=== PATIENT | female | born 1985 | race Hispanic/Latino ===

== ENCOUNTER 2018-03-29 09:13 | Emergency (ER) | payer OTHER ==
[2018-03-29 09:19] VITALS: BMI 26.6
--- NOTE | 2018-03-29 09:39 | ED PDOC ---
Arrival/HPI - General Chief Complaint: Back Pain Time Seen by Provider: 03/29/18 09:38 Historian: Patient - History of Present Illness Narrative History of Present Illness (Text): 03/29/18 09:39 This 32 yo female who denies pmh, presents to this ED c/o left flank pain x 7 hours. Patient stated pain is intermittent, and she can not find a comfortable position. Patient believes she has kidney stones, since her friend had similar symptoms, and Dx. renal stones. Patient denies sob, cp, fever, urinary symptoms, hematuria, or abnormal gait. Time/Duration: Other (see hpi) Quality: Stabbing Context: Home Past Medical History - Provider Review Nursing Documentation Reviewed: Yes - Infectious Disease Hx of Infectious Diseases: None - Psychiatric Hx Substance Use: No Family/Social History - Physician Review Nursing Documentation Reviewed: Yes Family/Social History: Other (noncontributory) Smoking Status: Current Some Days Smoker Hx Alcohol Use: Yes Frequency of alcohol use: Socially Hx Substance Use: No Allergies/Home Meds Allergies/Adverse Reactions: Allergies No Known Allergies Allergy (Verified 03/29/18 09:39) Review of Systems - Review of Systems Constitutional: Normal. absent: Fatigue, Weight Change, Fevers Eyes: Normal ENT: Normal Respiratory: Normal. absent: SOB, Cough Cardiovascular: Normal. absent: Chest Pain, Palpitations Gastrointestinal: Other (left flank pain). absent: Nausea, Vomiting Genitourinary Female: Normal. absent: Dysuria, Frequency, Hematuria, Vaginal Bleeding, Vaginal Discharge Musculoskeletal: Normal Skin: Normal Neurological: Normal Endocrine: Normal Hemo/Lymphatic: Normal Psychiatric: Normal Physical Exam Vital Signs Temp Pulse Resp BP Pulse Ox 03/29/18 12:19 98 F 75 19 124/72 98 03/29/18 09:13 98.7 F 105 H 16 121/79 97 Temperature: Afebrile Blood Pressure: Normal Pulse: Regular Respiratory Rate: Normal Appearance: Positive for: Well-Appearing, Non-Toxic, Comfortable Pain Distress: None Mental Status: Positive for: Alert and Oriented X 3 - Systems Exam Head: Present: Atraumatic, Normocephalic Pupils: Present: PERRL Extroacular Muscles: Present: EOMI Conjunctiva: Present: Normal Mouth: Present: Moist Mucous Membranes Neck: Present: Normal Range of Motion Respiratory/Chest: Present: Clear to Auscultation, Good Air Exchange. No: Respiratory Distress, Accessory Muscle Use Cardiovascular: Present: Regular Rate and Rhythm, Normal S1, S2. No: Murmurs Abdomen: No: Tenderness, Distention, Peritoneal Signs, Rebound, Guarding Back: Present: Normal Inspection, CVA Tenderness ((+) mild left CVT). No: Midline Tenderness, Paraspinal Tenderness, Pain with Leg Raise Upper Extremity: Present: Normal Inspection, Normal ROM. No: Cyanosis, Edema Lower Extremity: Present: Normal Inspection, Normal ROM. No: Edema Neurological: Present: GCS=15, CN II-XII Intact, Speech Normal Skin: Present: Warm, Dry, Normal Color. No: Rashes Psychiatric: Present: Alert, Oriented x 3, Normal Insight, Normal Concentration Medical Decision Making ED Course and Treatment: 03/29/18 09:44 Left flank pain -labs -ct abdomen/pelvis w/o r/o stones -ua -preg.test -ivf, toradol 03/29/18 12:20 Re-evaluation. Patient feels better. Discussed results and plan with patient who expresses understanding. All questions answered and there is agreement with the plan to discharge home with instructions. Patient stable for discharge. Return if symptoms persist or worsen Patient was recommended to return to ED if pain worsen or persist. To take medication as instructed. Re-evaluation Time: 12:21 Reassessment Condition: Re-examined, Improved - Lab Interpretations Lab Results: 03/29/18 09:50 03/29/18 09:50 Lab Results 03/29/18 09:50: Sodium 144, Potassium 3.9, Chloride 105, Carbon Dioxide 26, Anion Gap 16, BUN 15, Creatinine 0.7, Est GFR ( Amer) > 60, Est GFR (Non- Af Amer) > 60, Random Glucose 103, Calcium 8.9, Total Bilirubin 0.6, AST 22, ALT 24, Alkaline Phosphatase 53, Total Protein 7.2, Albumin 4.5, Globulin 2.7, Albumin/Globulin Ratio 1.7 03/29/18 09:50: WBC 7.4, RBC 4.53, Hgb 13.0, Hct 38.1, MCV 84.1, MCH 28.7, MCHC 34.1, RDW 12.9, Plt Count 257, MPV 10.0, Gran % 70.3 H, Lymph % (Auto) 20.4 L, [place] % (Auto) 6.0, Eos % (Auto) 2.8, Baso % (Auto) 0.5, Gran # 5.19, Lymph # ( Auto) 1.5, [place] # (Auto) 0.4, Eos # (Auto) 0.2, Baso # (Auto) 0.04 03/29/18 09:46: Urine Color Yellow, Urine Appearance Sl cloudy, Urine pH 6.0, Ur Specific [place] 1.020, Urine Protein 30 H, Urine Glucose (UA) Negative, Urine Ketones Negative, Urine Blood Large H, Urine Nitrate Negative, Urine Bilirubin Negative, Urine Urobilinogen 0.2, Ur Leukocyte Esterase Trace H, Urine RBC 0 - 2, Urine WBC 0 - 2, Ur Epithelial Cells 0 - 2, Urine Bacteria Small I have reviewed the lab results: Yes Interpretation: Abnormal lab values (trace leuk in UA) - RAD Interpretation Narrative RAD Interpretations (Text): 03/29/18 12:20 PROCEDURE: CT abdomen and pelvis dated 03/29/2018 HISTORY: Left flank pain COMPARISON: No prior study available for comparison TECHNIQUE: Contiguous helical/transaxial images of the abdomen and pelvis performed of without oral or intravenous contrast material. Additional 2D sagittal and coronal reformats generated. This CT exam was performed using one or more of the following dose reduction techniques: Automated exposure control, adjustment of the mA and/or kV according to patient size, and/or use of iterative reconstruction technique. Technique: Contrast dose: NA Radiation dose: Total exam DLP = 563.29 mGy-cm. This CT exam was performed using one or more of the following dose reduction techniques: Automated exposure control, adjustment of the mA and/or kV according to patient size, and/or use of iterative reconstruction technique. . FINDINGS: LOWER THORAX: Lung bases clear. No infiltrate effusion or basilar pneumothorax. There is a small hiatal hernia with slight wall thickening of the distal esophagus likely due to protrusion gastric mucosa. Possibility of esophagitis not excluded. Clinical correlation recommended. Heart size normal. No significant pericardial effusion. LIVER: Unremarkable. No gross lesion or ductal dilatation. GALLBLADDER AND BILE DUCTS: Gallbladder is physiologically distended. No evidence of intraluminal gallbladder calculi. . PANCREAS: Unremarkable. No mass. No ductal dilatation. SPLEEN: Unremarkable. No splenomegaly. ADRENALS: Prominent bilateral adrenal glands. KIDNEYS AND URETERS: Unremarkable. No stone or hydronephrosis. BLADDER: Urinary bladder incompletely distended which presumably accounts for thick- walled appearance. Cystitis not excluded therefore correlation with urinalysis recommended. REPRODUCTIVE: There is a relatively large elliptical shaped of right adnexal cyst that measures approximately 3.85 x 3.5 cm. APPENDIX: Appendix is not seen with certainty on this study however no obvious inflammatory changes right lower quadrant of the abdomen. BOWEL: Evaluation of the bowel is limited due to the lack of oral contrast material. The stomach is incompletely distended. Visualized loops of small bowel exhibit normal contour and caliber. No evidence of acute mechanical small bowel obstruction. Stool and air seen throughout the large bowel. There are few scattered colonic diverticula however no radiographic evidence acute diverticulitis. PERITONEUM: Unremarkable. No fluid collection. No free air. Small fat containing umbilical hernia. LYMPH NODES: There does appear to be a few scattered nonspecific small mesenteric and retroperitoneal lymph nodes. VASCULATURE: Unremarkable. No aortic aneurysm. BONES: Mild multilevel degenerative spondylosis of the lower thoracic and lumbar spine. OTHER FINDINGS: None. IMPRESSION: No evidence of nephrolithiasis or hydronephrosis. Urinary bladder wall is slightly thickened likely due to incomplete distention however correlation with urinalysis recommended to exclude cystitis. Relatively large right adnexal cyst as detailed above. Few small nonspecific retroperitoneal and mesenteric lymph nodes. No evidence of cholelithiasis. There are few scattered colonic diverticula however no radiographic evidence of acute diverticulitis. Appendix is not seen with certainty on this study however no obvious inflammatory changes right lower quadrant of the abdomen. Clinical correlation recommended. Radiology Orders: 03/29/18 09:40 ABD & PELVIS W/O PO OR IV CONT [CT] Stat - Medication Orders Current Medication Orders: Discontinued Medications Sodium Chloride (Sodium Chloride 0.9%) 1,000 mls @ 999 mls/hr IV .Q1H1M STA Stop: 03/29/18 10:40 Last Admin: 03/29/18 10:03 Dose: 999 mls/hr eMAR Start Stop Document 03/29/18 10:03 GMI (Rec: 03/29/18 10:03 GMI [facility] [place]-[id number]) Intravenous Solution Start Date 03/29/18 Start Time 10:03 Ketorolac Tromethamine (Toradol) 30 mg IVP STAT STA Stop: 03/29/18 09:41 Last Admin: 03/29/18 10:04 Dose: 30 mg MAR Pain Assessment Document 03/29/18 10:04 GM (Rec: 03/29/18 10:04 [facility]-[id number]) Pain Reassessment Is this a pain reassessment? Yes Sleep Is patient sleeping during reassessment? No Presence of Pain Presence of Pain Yes Pain Scale Used Pain Scale Used Numeric Location Pain Location Body Site Back Description Description Constant Intensity of Pain at present 10 Pain Behavior Moaning Alleviating Factors/Management Position Change Techniques Relaxation Techniques Alleviating Factors Medication IVP Administration Document 03/29/18 10:04 GMI (Rec: 03/29/18 10:04 [facility]-[id number]) Charges for Administration # of IVP Administrations 1 Disposition/Present on Arrival - Present on Arrival Any Indicators Present on Arrival: No History of DVT/PE: No History of Uncontrolled Diabetes: No Urinary Catheter: No History of Decub. Ulcer: No History Surgical Site Infection Following: None - Disposition Have Diagnosis and Disposition been Completed?: Yes Diagnosis: Flank pain, Cystitis, Hiatal hernia, Diverticulosis, Adnexal cyst Disposition: HOME/ ROUTINE Disposition Time: 12:22 Patient Plan: Discharge Condition: GOOD Discharge Instructions (ExitCare): Low Back Pain (DC), Flank Pain (DC), Hiatal Hernia (DC), Urinary Tract Infection, Adult (DC) Additional Instructions: Call private doctor for follow up visit in 1-2 days. Take medication as instructed . Return to emergency if symptoms worsen. Drink enough fluids. Review urine culture report with your doctor. Prescriptions: Cephalexin Susp [Keflex] 500 mg PO BID #140 ml Famotidine/Ca Carb/Mag Hydrox [Pepcid Complete Tablet Chew] 1 each PO DAILY #20 tab.chew Ibuprofen Susp [Motrin Oral Susp] 400 mg PO Q6H PRN #180 ml PRN Reason: Pain, Severe (8-10) Phenazopyridine [Pyridium] 200 mg PO TID #6 tab Referrals: Nelli Soria MD [Staff Provider] - Follow up with primary Marcial Garcia MD [Staff Provider] - Follow up with primary Payam Collado MD [Staff Provider] - Follow up with primary Forms: [employer] ([place]), WORK NOTE
[2018-03-29] MEDS ORDERED: Sodium Chloride 0.9% 1,000 ML IV STA (09:40)
[2018-03-29 10:06] LABS: URINE BILIRUBIN NEGATIVE (NEGATIVE); URINE BLOOD LARGE (NEGATIVE); URINE GLUCOSE (UA) NEGATIVE (NEGATIVE); URINE LEUKOCYTE ESTERASE TRACE Leu/uL (NEGATIVE); URINE PROTEIN 30 mg/dL (<30 mg/dL); URINE UROBILINOGEN 0.2 E.U./dL (<1 E.U./dL)
[2018-03-29 10:07] LABS: BASO # 0.04 K/mm3 (0.0-2.0); BASO % 0.5 % (0.0-3.0); EOS # 0.2 (0.0-0.7); EOS % 2.8 % (1.5-5.0); GRAN # 5.19 (1.4-6.5); GRAN % 70.3 % (50.0-68.0); LYMPH # 1.5 (1.2-3.4); LYMPH % 20.4 % (22.0-35.0); MEAN CELL VOLUME 84.1 fl (80.0-105.0); MEAN CORPUSCULAR HEMOGLOBIN 28.7 pg (25.0-35.0); MEAN CORPUSCULAR HGB CONC 34.1 g/dl (31.0-37.0); MONO # 0.4 (0.1-0.6); RBC 4.53 10^6/uL (3.5-6.1); RED CELL DISTRIBUTION WIDTH 12.9 % (11.5-14.5); WHITE BLOOD COUNT 7.4 10^3/ul (4.5-11.0)
[2018-03-29 10:09] LABS: URINE APPEARANCE SL CLOUDY (CLEAR); URINE COLOR YELLOW (YELLOW)
[2018-03-29 10:12] LABS: ALB/GLOB RATIO 1.7 (1.1-1.8); ALBUMIN 4.5 g/dL (3.0-4.8); ALT/SGPT 24 U/L (7-56); AST/SGOT 22 U/L (14-36); BLOOD UREA NITROGEN 15 mg/dL (7-21); CALCIUM 8.9 mg/dL (8.4-10.5); GFR AFRICAN-AMERICAN > 60; GFR NON-AFRICAN AMERICAN > 60
[2018-03-29 10:24] LABS: URINE BACTERIA SMALL (NEG); URINE EPITHELIAL CELLS 0 - 2 /hpf (0-5); URINE RBC 0 - 2 /hpf (0-2); URINE WBC 0 - 2 /hpf (0-6)
--- NOTE | 2018-03-29 11:56 | CT ---
PROCEDURE: CT abdomen and pelvis dated 03/29/2018 HISTORY: Left flank pain COMPARISON: No prior study available for comparison TECHNIQUE: Contiguous helical/transaxial images of the abdomen and pelvis performed of without oral or intravenous contrast material. Additional 2D sagittal and coronal reformats generated. This CT exam was performed using one or more of the following dose reduction techniques: Automated exposure control, adjustment of the mA and/or kV according to patient size, and/or use of iterative reconstruction technique. Technique: Contrast dose: NA Radiation dose: Total exam DLP = 563.29 mGy-cm. This CT exam was performed using one or more of the following dose reduction techniques: Automated exposure control, adjustment of the mA and/or kV according to patient size, and/or use of iterative reconstruction technique. . FINDINGS: LOWER THORAX: Lung bases clear. No infiltrate effusion or basilar pneumothorax. There is a small hiatal hernia with slight wall thickening of the distal esophagus likely due to protrusion gastric mucosa. Possibility of esophagitis not excluded. Clinical correlation recommended. Heart size normal. No significant pericardial effusion. LIVER: Unremarkable. No gross lesion or ductal dilatation. GALLBLADDER AND BILE DUCTS: Gallbladder is physiologically distended. No evidence of intraluminal gallbladder calculi. . PANCREAS: Unremarkable. No mass. No ductal dilatation. SPLEEN: Unremarkable. No splenomegaly. ADRENALS: Prominent bilateral adrenal glands. KIDNEYS AND URETERS: Unremarkable. No stone or hydronephrosis. BLADDER: Urinary bladder incompletely distended which presumably accounts for thick-walled appearance. Cystitis not excluded therefore correlation with urinalysis recommended. REPRODUCTIVE: There is a relatively large elliptical shaped of right adnexal cyst that measures approximately 3.85 x 3.5 cm. APPENDIX: Appendix is not seen with certainty on this study however no obvious inflammatory changes right lower quadrant of the abdomen. BOWEL: Evaluation of the bowel is limited due to the lack of oral contrast material. The stomach is incompletely distended. Visualized loops of small bowel exhibit normal contour and caliber. No evidence of acute mechanical small bowel obstruction. Stool and air seen throughout the large bowel. There are few scattered colonic diverticula however no radiographic evidence acute diverticulitis. PERITONEUM: Unremarkable. No fluid collection. No free air. Small fat containing umbilical hernia. LYMPH NODES: There does appear to be a few scattered nonspecific small mesenteric and retroperitoneal lymph nodes. VASCULATURE: Unremarkable. No aortic aneurysm. BONES: Mild multilevel degenerative spondylosis of the lower thoracic and lumbar spine. OTHER FINDINGS: None. IMPRESSION: No evidence of nephrolithiasis or hydronephrosis. Urinary bladder wall is slightly thickened likely due to incomplete distention however correlation with urinalysis recommended to exclude cystitis. Relatively large right adnexal cyst as detailed above. Few small nonspecific retroperitoneal and mesenteric lymph nodes. No evidence of cholelithiasis. There are few scattered colonic diverticula however no radiographic evidence of acute diverticulitis. Appendix is not seen with certainty on this study however no obvious inflammatory changes right lower quadrant of the abdomen. Clinical correlation recommended.
[2018-03-29 12:20] VITALS: TEMP 98
[2018-03-29 13:00] VITALS: BP 127/52; PULSE 88; RESP 20; O2SAT 99
== END 2018-03-29 12:59 | disposition home or self-care (01) ==
LOC: ED 09:13
DX: K44.9 Diaphragmatic hernia without obstruction or gangrene (principal); K57.30 Diverticulosis of large intestine without perforation or abscess without bleeding; N83.209 Unspecified ovarian cyst, unspecified side; F17.200 Nicotine dependence, unspecified, uncomplicated
CPT/HCPCS: 74176; 80053; 81001; 81025; 85025; 87086; 96361; 96374; 99284; J1885; J7040